=== PATIENT | female | born 1960 | race Caucasian/White ===

== ENCOUNTER → 2016-09-02 | Outpatient (CLI) | payer OTHER ==
--- NOTE | 2016-09-02 12:54 | MM ---
Reason for exam: screening (asymptomatic). Last mammogram was performed 1 year and 5 months ago. History: Patient is postmenopausal. Family history of premenopausal breast cancer in mother at age 40. Took hormonal contraceptives for 10 years. Physical Findings: A clinical breast exam by your physician is recommended on an annual basis and results should be correlated with mammographic findings. MG 3D Screening Mammo W/Cad Bilateral CC and MLO view(s) were taken. Prior study comparison: April 10, 2015, bilateral MG screening mammo w CAD. April 17, 2013, bilateral digital screening mammo w/CAD. The breast tissue is heterogeneously dense. This may lower the sensitivity of mammography. There is no discrete abnormality. ASSESSMENT: Negative, BI-RAD 1 RECOMMENDATION: Routine screening mammogram of both breasts in 1 year.
== END | disposition home or self-care (01) ==
LOC: RADMAMWWP 07:50
PROVIDERS: ATTEND Obstetrics & Gynecology
DX: Z12.31 Encounter for screening mammogram for malignant neoplasm of breast (principal); Z80.3 Family history of malignant neoplasm of breast
CPT/HCPCS: 77063; G0202

== ENCOUNTER → 2018-04-22 | Outpatient (CLI) | payer OTHER ==
--- NOTE | 2018-04-25 10:48 | MM ---
Reason for exam: screening (asymptomatic). Last mammogram was performed 1 year and 8 months ago. History: Patient is postmenopausal. Family history of premenopausal breast cancer in mother at age 40. Took hormonal contraceptives for 10 years. Physical Findings: A clinical breast exam by your physician is recommended on an annual basis and results should be correlated with mammographic findings. MG 3D Screening Mammo W/Cad Bilateral CC and MLO view(s) were taken. Prior study comparison: September 02, 2016, bilateral MG 3d screening mammo w/cad. April 10, 2015, bilateral MG screening mammo w CAD. The breast tissue is heterogeneously dense. This may lower the sensitivity of mammography. There is no discrete abnormality. ASSESSMENT: Negative, BI-RAD 1 RECOMMENDATION: Routine screening mammogram of both breasts in 1 year.
== END | disposition home or self-care (01) ==
LOC: RADMAMWWP 08:57
PROVIDERS: ATTEND Family Medicine
DX: Z12.31 Encounter for screening mammogram for malignant neoplasm of breast (principal)
CPT/HCPCS: 77063; 77067

== ENCOUNTER 2018-06-01 09:09 | Day surgery (SDC) | payer OTHER ==
[2018-05-27 14:16] VITALS: BMI 29.5
--- NOTE | 2018-06-01 09:33 | P.GSHP ---
History of Present Illness H&P Date: 06/01/18 CHIEF COMPLAINT: Colon screen HISTORY OF PRESENT ILLNESS: The patient is a 58-year-old female who presents for colon screen. Lower endoscopy was offered for further evaluation and management. PAST MEDICAL HISTORY: Please see list. PAST SURGICAL HISTORY: Please see list. MEDICATIONS: Please see list. ALLERGIES: Please see list. SOCIAL HISTORY: No illicit drug use FAMILY HISTORY: No reports of Crohn disease or ulcerative colitis. REVIEW OF ORGAN SYSTEMS: CONSTITUTIONAL: No reports of fevers or chills. PHYSICAL EXAM: VITAL SIGNS: Stable GENERAL: Well-developed pleasant in no acute distress. HEENT: No scleral icterus. Extraocular movements grossly intact. Moist buccal mucosa. NECK: Supple without lymphadenopathy. CHEST: Unlabored respirations. Equal bilateral excursions. CARDIOVASCULAR: Regular rate and rhythm. Distal 2+ pulses. ABDOMEN: Soft, nontender, nondistended. MUSCULOSKELETAL: No clubbing, cyanosis, or edema. ASSESSMENT: 1. Colon screen. PLAN: 1. Recommend proceeding with a lower endoscopy Past Medical History Past Medical History: No Reported History Additional Past Medical History / Comment(s): SCREENING History of Any Multi-Drug Resistant Organisms: None Reported Additional Past Surgical History / Comment(s): COLONOSCOPY Past Anesthesia/Blood Transfusion Reactions: No Reported Reaction Additional Past Anesthesia/Blood Transfusion Reaction / Comment(s): NO GENERAL ANESTHESIA Smoking Status: Former smoker - Past Family History Mother Family Medical History: Cancer Brother(s) Family Medical History: Cancer Medications and Allergies Home Medications Medication Instructions Recorded Confirmed Type No Known Home Medications 05/27/18 05/27/18 History Allergies Allergy/AdvReac Type Severity Reaction Status Date / Time No Known Allergies Allergy Verified 05/27/18 14:11
[2018-06-01 09:50] VITALS: RESP 18; TEMP 97.8
[2018-06-01] MEDS ORDERED: LIDOCAINE 1% 20 ML VIAL (10MG/ML) FOR IV START INTRADERMA ONE (09:59)
[2018-06-01] MEDS: LACTATED RINGERS 1,000 ML IV SCH ×2 (09:59→10:30)
[2018-06-01] MEDS ORDERED: PROPOFOL 10 MG/ML 20 ML VIAL IV ONE (10:29)
[2018-06-01] MEDS ORDERED: LIDOCAINE 1% INJ 10MG/ML (20 ML MDV) ONE (10:29)
--- NOTE | 2018-06-01 11:06 | P.PCN ---
Date of Procedure: 06/01/18 Description of Procedure: PREOPERATIVE DIAGNOSIS: Colonoscopy surveillance History of colon polyps POSTOPERATIVE DIAGNOSIS: Colonoscopy surveillance History of colon polyps Tubular adenoma sigmoid colon Distal transverse colon polyp Internal/external hemorrhoids OPERATION: Colonoscopy to the ileocecal valve and appendiceal orifice. Colonoscopy with hot snare polypectomy sigmoid colon Colonoscopy with cold forceps biopsy distal transverse colon SURGEON: Carol Benitez MD. ANESTHESIA: MAC. INDICATIONS: The patient is a 58-year-old female who presents for colonoscopy. Last colonoscopy was 5 years ago and incomplete. She is a personal history of colon polyps. Benefits and risks were described and informed consent was obtained. DESCRIPTION OF PROCEDURE: The patient had undergone Gatorade, MiraLAX and Dulcolax prep. She had been brought into the operating room and laid in the left lateral decubitus position. After adequate intravenous sedation, the rectum was examined with 2% lidocaine jelly. External hemorrhoids were encountered. The rectal tone was within normal limits. No lesions were palpated in the rectal vault. Abdominal pressure was used to advance the scope. An Olympus colonoscope was advanced until the ileocecal valve and appendiceal orifice were clearly viewed. The prep was excellent with clear visualization of the mucosal folds. The scope was removed with visualization of each mucosal fold. No scattered diverticulosis was encountered. Tubular adenoma with snare polypectomy at 20 cm from the anal verge, 8 mm polyp. At mid transverse colon, 70 cm from the anal verge, 4 mm polyp cold forceps biopsy. No evidence of focal colitis was found. Retroflexion of the scope demonstrated grade 2 internal hemorrhoids without active bleeding or inflammation. The colon was desufflated. The patient had tolerated the procedure well. Withdrawal time was over 6 minutes. FINDINGS: Internal hemorrhoids, grade 2 External prolapsed hemorrhoids, grade 2 No arteriovenous malformations. No scattered diverticulosis was encountered. Removal of 2 polyps: - Tubular adenoma with snare polypectomy at 20 cm from the anal verge, 8 mm polyp, sigmoid colon - At mid transverse colon, 70 cm from the anal verge, 4 mm polyp cold forceps biopsy. No focal colitis. RECOMMENDATIONS: Colonoscopy in one year, 2019, for high risk polyps Plan - Discharge Summary New Discharge Prescriptions: No Action No Known Home Medications Discharge Medication List No Known Home Medications 05/27/18 [History]
[2018-06-01 11:32] VITALS: BP 143/76; PULSE 66
== END 2018-06-01 11:33 | disposition home or self-care (01) ==
LOC: ORWHC2ENDO 09:09
PROVIDERS: ATTEND Surgery Plastic and Reconstructive Surgery
DX: Z12.11 Encounter for screening for malignant neoplasm of colon (principal); D12.5 Benign neoplasm of sigmoid colon; D12.3 Benign neoplasm of transverse colon; K64.1 Second degree hemorrhoids; K64.8 Other hemorrhoids; Z86.010 Personal history of colon polyps; Z87.891 Personal history of nicotine dependence
CPT/HCPCS: 88305; 45380; 45385; J2001; J2704

== ENCOUNTER → 2019-08-07 | Outpatient (CLI) | payer OTHER ==
--- NOTE | 2019-08-07 14:03 | MM ---
Reason for exam: screening (asymptomatic). Last mammogram was performed 1 year and 3 months ago. History: Patient is postmenopausal. Family history of premenopausal breast cancer in mother at age 40. Took hormonal contraceptives for 10 years. Physical Findings: A clinical breast exam by your physician is recommended on an annual basis and results should be correlated with mammographic findings. MG 3D Screening Mammo W/Cad Bilateral CC and MLO view(s) were taken. Prior study comparison: April 22, 2018, bilateral MG 3d screening mammo w/cad. September 02, 2016, bilateral MG 3d screening mammo w/cad. The breast tissue is heterogeneously dense. This may lower the sensitivity of mammography. No suspicious abnormality. No significant changes when compared with prior studies. ASSESSMENT: Negative, BI-RAD 1 RECOMMENDATION: Routine screening mammogram of both breasts in 1 year.
== END | disposition home or self-care (01) ==
LOC: RADMAMWWP 09:52
PROVIDERS: ATTEND Obstetrics & Gynecology
DX: Z12.31 Encounter for screening mammogram for malignant neoplasm of breast (principal); Z80.3 Family history of malignant neoplasm of breast
CPT/HCPCS: 77063; 77067

== ENCOUNTER 2019-08-10 07:11 | Day surgery (SDC) | payer OTHER ==
[2019-08-08 13:43] VITALS: BMI 29.6
[~2019-08-10 07:11] MED LIST: LACTATED RINGERS 1,000 ML IV SCH; LIDOCAINE 1% 20 ML VIAL (10MG/ML) FOR IV START INTRADERMA PRN
[2019-08-10 07:28] VITALS: TEMP 97.4
--- NOTE | 2019-08-10 07:58 | P.GSHP ---
History of Present Illness H&P Date: 08/10/19 CHIEF COMPLAINT: Colon screen HISTORY OF PRESENT ILLNESS: The patient is a 59-year-old female who presents for colon screen. Lower endoscopy was offered for further evaluation and management. PAST MEDICAL HISTORY: Please see list. PAST SURGICAL HISTORY: Please see list. MEDICATIONS: Please see list. ALLERGIES: Please see list. SOCIAL HISTORY: No illicit drug use FAMILY HISTORY: No reports of Crohn disease or ulcerative colitis. REVIEW OF ORGAN SYSTEMS: CONSTITUTIONAL: No reports of fevers or chills. PHYSICAL EXAM: VITAL SIGNS: Stable GENERAL: Well-developed pleasant in no acute distress. HEENT: No scleral icterus. Extraocular movements grossly intact. Moist buccal mucosa. NECK: Supple without lymphadenopathy. CHEST: Unlabored respirations. Equal bilateral excursions. CARDIOVASCULAR: Regular rate and rhythm. Distal 2+ pulses. ABDOMEN: Soft, nontender, nondistended. MUSCULOSKELETAL: No clubbing, cyanosis, or edema. ASSESSMENT: 1. Colon screen. PLAN: 1. Recommend proceeding with a lower endoscopy Past Medical History Past Medical History: Skin Disorder Additional Past Medical History / Comment(s): rash on left leg, History of Any Multi-Drug Resistant Organisms: None Reported Additional Past Surgical History / Comment(s): colonoscopy Past Anesthesia/Blood Transfusion Reactions: Motion Sickness Smoking Status: Former smoker - Past Family History Mother Family Medical History: Cancer Medications and Allergies Home Medications Medication Instructions Recorded Confirmed Type Calcium Carbonate [Calcium] 600 mg PO BID 08/08/19 08/10/19 History Vitamin A D K 1 tab PO DAILY 08/08/19 08/10/19 History Allergies Allergy/AdvReac Type Severity Reaction Status Date / Time No Known Allergies Allergy Verified 08/08/19 13:36 Surgical - Exam Vital Signs Temp Pulse Resp BP Pulse Ox 97.4 F L 72 16 158/77 99 08/10/19 07:26 08/10/19 07:26 08/10/19 07:26 08/10/19 07:26 08/10/19 07:26
[2019-08-10] MEDS ORDERED: LIDOCAINE 1% INJ 10MG/ML (20 ML MDV) ONE (08:06)
[2019-08-10] MEDS ORDERED: PROPOFOL 10 MG/ML 20 ML VIAL IV ONE (08:06)
--- NOTE | 2019-08-10 08:32 | P.PCN ---
Date of Procedure: 08/10/19 Description of Procedure: PREOPERATIVE DIAGNOSIS: Colonoscopy surveillance History of colon polyps POSTOPERATIVE DIAGNOSIS: Colonoscopy surveillance History of colon polyps Tubular adenoma sigmoid colon Internal/external hemorrhoids OPERATION: Colonoscopy to the ileocecal valve and appendiceal orifice. Colonoscopy with cold forceps biopsy SURGEON: Carol Benitez MD. ANESTHESIA: MAC. INDICATIONS: The patient is a 59-year-old female who presents for colonoscopy. She is a personal history of colon polyps with last colonoscopy 1 year ago. Benefits and risks were described and informed consent was obtained. DESCRIPTION OF PROCEDURE: The patient had undergone Suprep. She had been brought into the operating room and laid in the left lateral decubitus position. After adequate intravenous sedation, the rectum was examined with 2% lidocaine jelly. External hemorrhoids were encountered. The rectal tone was within normal limits. No lesions were palpated in the rectal vault. Abdominal pressure was used to advance the scope. An Olympus colonoscope was advanced until the ileocecal valve and appendiceal orifice were clearly viewed. The prep was excellent with clear visualization of the mucosal folds. The scope was removed with visualization of each mucosal fold. No scattered diverticulosis was encountered. Multiple polyps were removed via cold forceps biopsy. No evidence of focal colitis was found. Retroflexion of the scope demonstrated grade 2 internal hemorrhoids without active bleeding or inflammation. The colon was desufflated. The patient had tolerated the procedure well. Withdrawal time was over 6 minutes. FINDINGS: Aronchick preparation quality scale 1 (1-5) Internal hemorrhoids, grade 2 External prolapsed hemorrhoids, grade 2 No arteriovenous malformations. No scattered diverticulosis was encountered. Removal of 4 polyps: - Cold forceps biopsy at 20 cm 3, 3-4 mm polyps, sigmoid colon - Cold forceps biopsy at cecum, 3 mm polyp cold forceps biopsy. No focal colitis. RECOMMENDATIONS: Colonoscopy in 3 years, 2022 Plan - Discharge Summary New Discharge Prescriptions: No Action Calcium Carbonate [Calcium] 600 mg PO BID Vitamin A D K 1 tab PO DAILY Discharge Medication List Calcium Carbonate [Calcium] 600 mg PO BID 08/08/19 [History] Vitamin A D K 1 tab PO DAILY 08/08/19 [History] Follow up Appointment(s)/Referral(s): Carol Benitez MD [STAFF PHYSICIAN] - As Needed Patient Instructions/Handouts: Colorectal Polyps (DC) Activity/Diet/Wound Care/Special Instructions: Reproductive colonoscopy 3 years, 2022 Discharge Disposition: HOME SELF-CARE
[2019-08-10 08:47] VITALS: BP 146/89; PULSE 60; RESP 16
== END 2019-08-10 09:09 | disposition home or self-care (01) ==
LOC: ORWHC2ENDO 07:11
PROVIDERS: ATTEND Surgery Plastic and Reconstructive Surgery
DX: Z12.11 Encounter for screening for malignant neoplasm of colon (principal); K63.5 Polyp of colon; K64.4 Residual hemorrhoidal skin tags; K64.1 Second degree hemorrhoids; Z86.010 Personal history of colon polyps; Z87.891 Personal history of nicotine dependence; Z87.2 Personal history of diseases of the skin and subcutaneous tissue; Z80.9 Family history of malignant neoplasm, unspecified
CPT/HCPCS: 88305; 45380; J2001; J2704

== ENCOUNTER → 2021-06-17 | Outpatient (CLI) | payer OTHER ==
--- NOTE | 2021-06-18 11:19 | MM ---
Reason for exam: screening (asymptomatic). Last mammogram was performed 1 year and 10 months ago. History: Patient is postmenopausal. Family history of premenopausal breast cancer in mother at age 40. Took hormonal contraceptives for 10 years. Physical Findings: A clinical breast exam by your physician is recommended on an annual basis and results should be correlated with mammographic findings. MG 3D Screening Mammo W/Cad Bilateral CC and MLO view(s) were taken. Prior study comparison: August 07, 2019, bilateral MG 3d screening mammo w/cad. April 22, 2018, bilateral MG 3d screening mammo w/cad. The breast tissue is heterogeneously dense. This may lower the sensitivity of mammography. No significant changes when compared with prior studies. ASSESSMENT: Benign, BI-RAD 2 RECOMMENDATION: Routine screening mammogram of both breasts in 1 year.
== END | disposition home or self-care (01) ==
LOC: RADMAMWWP 07:09
PROVIDERS: ATTEND Obstetrics & Gynecology
DX: Z12.31 Encounter for screening mammogram for malignant neoplasm of breast (principal); Z80.3 Family history of malignant neoplasm of breast; Z78.0 Asymptomatic menopausal state
CPT/HCPCS: 77063; 77067

== ENCOUNTER → 2022-11-17 | Outpatient (CLI) | payer OTHER ==
--- NOTE | 2022-11-18 18:36 | MM ---
Reason for Exam: Screening (asymptomatic). Last mammogram was performed 1 year(s) and 5 month(s) ago. Patient History: Menarche at age 10. First Full-Term at age 28. Late child-bearing (after 28). Postmenopausal. Hormonal Contraceptives for 10 years until age 28. Mother had breast cancer, age 40. Risk Values: Adriane 5 year model risk: 3.3%. NCI Lifetime model risk: 12.7%. Prior Study Comparison: 04/22/2018 Bilateral Screening Mammogram, [facility]. 08/07/2019 Bilateral Screening Mammogram, [facility]. 06/17/2021 Bilateral Screening Mammogram, [facility]. Tissue Density: There are scattered fibroglandular densities. Findings: Analyzed By CAD. Pattern appears stable. No significant interval change is evident. No suspicious groups of microcalcifications, spiculated or lobular masses, architectural distortion or other secondary signs of malignancy are mammographically apparent. Overall Assessment: Benign, BI-RAD 2 Management: Screening Mammogram of both breasts in 1 year. A negative mammogram report should not preclude additional follow up of suspicious palpable abnormalities. Patient should continue monthly self breast exam. A clinical breast exam by your physician is recommended on an annual basis and results should be correlated with mammographic findings. Electronically signed and approved by: Irwin Sun D.O. Radiologis
== END | disposition home or self-care (01) ==
LOC: RADMAMWWP 11:24
PROVIDERS: ATTEND Obstetrics & Gynecology
DX: Z12.31 Encounter for screening mammogram for malignant neoplasm of breast (principal); Z78.0 Asymptomatic menopausal state; Z80.3 Family history of malignant neoplasm of breast
CPT/HCPCS: 77063; 77067

== ENCOUNTER → 2023-11-03 | Outpatient (CLI) | payer MEDICARE ==
[2023-11-03 14:41] LABS: HCT 45.9 % (37.2-46.3); HGB 14.9 g/dL (12.0-15.0); MCHC 32.5 g/dL (32.0-37.0); MCV 95.6 FL (80.0-97.0); Mean Platelet Volume 12.4 FL (9.5-12.2); NRBC Per 100 WBC 0 X 10*3/uL (0.00-0.01); Platelet Count 201 X 10*3/uL (140-440); RDW 14.1 % (11.5-14.5); WBC 4.79 X 10*3/uL (4.50-10.00)
[2023-11-03 15:36] LABS: Blood Urea Nitrogen 15.2 mg/dL (9.0-27.0); Carbon Dioxide 26.8 mmol/L (21.6-31.8); Chloride 105 mmol/L (96-109); Potassium 4.5 mmol/L (3.5-5.5); Sodium 142 mmol/L (135-145)
== END | disposition home or self-care (01) ==
LOC: LABWHC1 09:16
PROVIDERS: ATTEND Internal Medicine
DX: Z01.812 Encounter for preprocedural laboratory examination (principal); R06.02 Shortness of breath
CPT/HCPCS: 36415; 80051; 82565; 84520; 85027

== ENCOUNTER 2023-11-10 08:48 | Day surgery (SDC) | payer MEDICARE ==
[2023-11-09 08:48] VITALS: BMI 30.4
[~2023-11-10 08:48] MED LIST changes: +ALPRAZolam 0.25 MG TAB PO PRN; -LACTATED RINGERS 1,000 ML IV SCH; -LIDOCAINE 1% 20 ML VIAL (10MG/ML) FOR IV START INTRADERMA PRN; +NITROGLYCERIN SL TABS 0.4 MG TAB SUBLINGUAL PRN
[2023-11-10] MEDS: ASPIRIN 325 MG TAB PO STA (09:00)
[2023-11-10] MEDS: SODIUM CHLORIDE 0.9% 1,000 ML in EMPTY BAG 1 BAG IV SCH (09:00)
[2023-11-10] MEDS: SODIUM CHLORIDE 0.9% 1,000 ML IV ONE (09:06)
[2023-11-10] MEDS: ALPRAZolam 0.5 MG TAB PO PRN (09:24)
[2023-11-10 09:50] VITALS: RESP 18; TEMP 97.6
[2023-11-10] MEDS ORDERED: fentaNYL (PF) 50 MCG/ML 2 ML AMP ONE (09:55)
[2023-11-10] MEDS ORDERED: LIDOCAINE 1% INJ 10MG/ML (20 ML MDV) ONE (09:55)
[2023-11-10] MEDS ORDERED: HEPARIN SODIUM 1,000 UN/ML (10ML VL) ONE (09:55)
[2023-11-10] MEDS ORDERED: VERAPAMIL 2.5 MG/ML 2 ML AMP ONE (09:55)
[2023-11-10] MEDS: LIDOCAINE 1% INJ 10MG/ML (30 ML VIAL-PF) SQ ONE (10:30)
[2023-11-10] MEDS: VERAPAMIL SYRINGE (5 MG/10 ML) INTRAARTER ONE (10:30)
[2023-11-10] MEDS: fentaNYL (PF) 50 MCG/1 ML VIAL IVP ONE (10:30)
[2023-11-10] MEDS: MIDAZOLAM 2 MG/2 ML VIAL IVP ONE (10:30)
[2023-11-10] MEDS: HEPARIN SODIUM 1,000 UN/ML (10ML VL) IVP ONE (10:33)
[2023-11-10] MEDS: IOPAMIDOL-370 100ML BTL INTRATHECA ONE (10:44)
--- NOTE | 2023-11-10 13:15 | P.CARDCATH ---
Description of Procedure: PROCEDURES PERFORMED: Left heart catheterization, bilateral coronary angiography, ultrasound guided arterial access INDICATION: abnormal stress test CONSENT:I have discussed the risks, benefits and alternative therapies for the above-mentioned procedure and for both sedation/analgesia as well as necessary blood product administration, if indicated, as they pertain to this patient. The patient has indicated understanding and acceptance of the risks and procedures discussed. PROCEDURE: After the risks, benefits and alternatives of the above mentioned procedure explained in detail with the patient, informed consent was obtained. Patient was taken to the catheterization lab and prepped and draped in usual fashion. Ultrasound guidance was used to assess for arterial access. 1% lidocaine was used to anesthetize the right radial artery. A 6-Guamanian sheath was placed in the right radial artery using modified Seldinger technique and ultrasound guidance. Left coronary angiography was performed with a 5-Guamanian JL 3.5 catheter and right coronary angiography was performed with a 5-Guamanian FR5 catheter in various views. A 5-Guamanian FR5 catheter was inserted into the left ventricle and pressure measurements were obtained. The right radial sheath was removed and a TR band was placed with hemostasis achieved. The patient to lerated the procedure well. Patient was transported back to the post catheterization holding area in stable condition. Conscious Sedation: Patient was monitored under the direct supervision of myself for conscious sedation using Versed and fentanyl for a total duration of 12 minutes HEMODYNAMICS: aorta: 138/71 LV: 134/7, LVDP 13 SELECTIVE CORONARY ARTERIOGRAPHY: LEFT MAIN: The left main is a large caliber vessel which bifurcates into the LAD and circumflex. There is no significant stenosis. LEFT ANTERIOR DESCENDING CORONARY ARTERY: LAD is a large caliber vessel which wraps around to the apex. There is no significant stenosis. LEFT CIRCUMFLEX CORONARY ARTERY: Left circumflex is a moderate caliber vessel without significant stenosis. RIGHT CORONARY ARTERY: The right coronary artery is a large caliber vessel which gives off a PDA and PLV branch and is the dominant vessel. There are mild luminal irregularities of the RCA FINAL IMPRESSION: 1. Relatively normal coronary arteries other than mild luminal irregularities of the RCA 2. Normal left sided filling pressures PLAN: 1. Aggressive risk factor modification per most recent ACC/AHA guidelines. 2. Follow-up in the office in 1-2 weeks.
[2023-11-10 13:21] VITALS: PULSE 62
[2023-11-10 15:12] VITALS: BP 136/59
== END 2023-11-10 14:40 | disposition home or self-care (01) ==
LOC: CATHCVL 08:48
PROVIDERS: ATTEND Internal Medicine
DX: I48.0 Paroxysmal atrial fibrillation (principal); I34.0 Nonrheumatic mitral (valve) insufficiency; I50.31 Acute diastolic (congestive) heart failure; Z79.01 Long term (current) use of anticoagulants; Z79.899 Other long term (current) drug therapy
CPT/HCPCS: 93458; 76937; 99152; C1769; C1894; J2250; J2001; J1644; Q9967; J3010

== ENCOUNTER → 2023-12-23 | Outpatient (CLI) | payer MEDICARE ==
--- NOTE | 2023-12-28 12:01 | MM ---
Reason for Exam: Screening (asymptomatic). Last mammogram was performed 1 year(s) and 1 month(s) ago. Patient History: Menarche at age 10. First Full-Term at age 28. Late child-bearing (after 30). Postmenopausal. Hormonal Contraceptives for 10 years until age 28. Mother had breast cancer, age 40. Risk Values: Adriane 5 year model risk: 3.3%. NCI Lifetime model risk: 12.3%. Prior Study Comparison: 08/07/2019 Bilateral Screening Mammogram, [facility]. 06/17/2021 Bilateral Screening Mammogram, [facility]. 11/17/2022 Bilateral MG 3D screening mammo w/cad, [facility]. Tissue Density: The breasts are heterogeneously dense, which may obscure small masses. Findings: Analyzed By CAD. Right breast: There is no suspicious group of microcalcifications or new suspicious mass. Left breast: There is no suspicious group of microcalcifications or new suspicious mass. Overall Assessment: Negative, BI-RAD 1 Management: Screening Mammogram of both breasts in [address] [facility] will attempt to contact patient to return for supplemental views and ultrasound if indicated. Patient should continue monthly self-breast exams. A clinical breast exam by your physician is recommended on an annual basis. This exam should not preclude additional follow-up of suspicious palpable abnormalities. Note on Adriane scores and lifetime risk: 1. A Adriane score greater than 3% is considered moderate risk. If this is the case, consider specialist referral to assess eligibility for a risk reducing agent. 2. If overall lifetime risk for the development of breast cancer is 20% or higher, the patient may qualify for future screening with alternating mammogram and breast MRI. Electronically signed and approved by: Brian Barry DO
== END | disposition home or self-care (01) ==
LOC: RADMAMWWP 12:37
PROVIDERS: ATTEND Family Medicine
DX: Z12.31 Encounter for screening mammogram for malignant neoplasm of breast (principal); Z78.0 Asymptomatic menopausal state; Z80.3 Family history of malignant neoplasm of breast
CPT/HCPCS: 77063; 77067

== ENCOUNTER 2024-06-15 11:42 | Day surgery (SDC) | payer MEDICARE ==
--- NOTE | 2024-06-15 08:42 | P.GSHP ---
History of Present Illness H&P Date: 06/15/24 CHIEF COMPLAINT: Colon screen HISTORY OF PRESENT ILLNESS: The patient is a 64-year-old female who presents for colon screen. Lower endoscopy was offered for further evaluation and management. PAST MEDICAL HISTORY: Please see list. PAST SURGICAL HISTORY: Please see list. MEDICATIONS: Please see list. ALLERGIES: Please see list. SOCIAL HISTORY: No illicit drug use FAMILY HISTORY: No reports of Crohn disease or ulcerative colitis. REVIEW OF ORGAN SYSTEMS: CONSTITUTIONAL: No reports of fevers or chills. PHYSICAL EXAM: VITAL SIGNS: Stable GENERAL: Well-developed pleasant in no acute distress. HEENT: No scleral icterus. Extraocular movements grossly intact. Moist buccal mucosa. NECK: Supple without lymphadenopathy. CHEST: Unlabored respirations. Equal bilateral excursions. CARDIOVASCULAR: Regular rate and rhythm. Distal 2+ pulses. ABDOMEN: Soft, nontender, nondistended. MUSCULOSKELETAL: No clubbing, cyanosis, or edema. ASSESSMENT: 1. Colon screen. PLAN: 1. Recommend proceeding with a lower endoscopy Past Medical History Past Medical History: Atrial Fibrillation, Hyperlipidemia, Osteoarthritis (OA) History of Any Multi-Drug Resistant Organisms: None Reported Additional Past Surgical History / Comment(s): Colonoscopy Past Anesthesia/Blood Transfusion Reactions: No Reported Reaction Additional Past Anesthesia/Blood Transfusion Reaction / Comment(s): No hx of blood transfusion to date. Smoking Status: Former smoker - Past Family History Father Family Medical History: No Reported History Medications and Allergies Home Medications Medication Instructions Recorded Confirmed Type Apixaban [Eliquis] 5 mg PO BID 11/09/23 06/12/24 History Allergies Allergy/AdvReac Type Severity Reaction Status Date / Time No Known Allergies Allergy Verified 06/12/24 10:06
[2024-06-15 12:22] VITALS: RESP 18; TEMP 98.1
[2024-06-15] MEDS: IV FLUID CONTINUATION 1,000 ML IV ONE (12:30)
[2024-06-15] MEDS: LACTATED RINGERS 1,000 ML IV SCH (12:31)
[2024-06-15] MEDS ORDERED: PROPOFOL 10 MG/ML 20 ML VIAL IV ONE (12:42)
--- NOTE | 2024-06-15 13:14 | P.PCN ---
Date of Procedure: 06/15/24 Description of Procedure: PREOPERATIVE DIAGNOSIS: Colonoscopy screening. POSTOPERATIVE DIAGNOSIS: Colonoscopy screening. Hyperplastic rectal polyps OPERATION: Colonoscopy to the cecum, ileocecal valve and appendiceal orifice. SURGEON: Carol Benitez MD. ANESTHESIA: MAC. INDICATIONS: The patient is a 64-year-old female who presents for colonoscopy screening. Last colonoscopy 5 years ago. Benefits and risks were described and informed consent was obtained. DESCRIPTION OF PROCEDURE: The patient had undergone Sutab prep. The patient had been brought into the operating room and laid in the left lateral decubitus position. After adequate intravenous sedation, the rectum was examined with 2% lidocaine jelly. No external hemorrhoids were encountered. The rectal tone was within normal limits. No lesions were palpated in the rectal vault. An Olympus colonoscope was advanced until the cecum, ileocecal valve and appendiceal orifice were clearly viewed. The prep was excellent. Scattered diverticulosis was encountered. Hyperplastic benign rectal polyps were identified. No evidence of focal colitis was found. Retroflexion of the scope demonstrated grade 1 internal hemorrhoids without active bleeding or inflammation. The colon was desufflated. The patient had tolerated the procedure well. Withdrawal time was over 6 minutes. FINDINGS: Aronchick preparation quality scale (1-5) Internal hemorrhoids, grade 1 No external prolapsed hemorrhoids. No arteriovenous malformations. Hyperplastic rectal polyps, 10 cm from the anal verge. No focal colitis. RECOMMENDATIONS: Lower endoscopy in 3 years2026 Plan - Discharge Summary Discharge Rx Participant: No New Discharge Prescriptions: Continue Apixaban [Eliquis] 5 mg PO BID Discharge Medication List Apixaban [Eliquis] 5 mg PO BID 11/09/23 [History] Follow up Appointment(s)/Referral(s): Carol Benitez MD [STAFF PHYSICIAN] - As Needed Patient Instructions/Handouts: Moderate Sedation (DC) Activity/Diet/Wound Care/Special Instructions: Repeat colonoscopy 3 years, 2026 Discharge Disposition: HOME SELF-CARE
[2024-06-15 13:22] VITALS: BP 144/77; PULSE 62
== END 2024-06-15 13:38 | disposition home or self-care (01) ==
LOC: ORWHC2ENDO 11:42
PROVIDERS: ATTEND Surgery Plastic and Reconstructive Surgery
DX: Z12.11 Encounter for screening for malignant neoplasm of colon (principal); D12.8 Benign neoplasm of rectum; K57.30 Diverticulosis of large intestine without perforation or abscess without bleeding; K64.0 First degree hemorrhoids; I48.91 Unspecified atrial fibrillation; E78.5 Hyperlipidemia, unspecified; Z79.01 Long term (current) use of anticoagulants; Z86.0100 Personal history of colon polyps, unspecified
CPT/HCPCS: J2704; G0121; 45378

== ENCOUNTER 2024-10-21 17:09 | Inpatient (IN) | payer MEDICARE ==
--- NOTE | 2024-10-21 17:25 | ED ---
General Adult HPI - General Chief complaint: Weakness Stated complaint: irreg heart rate,weak,SOB Time Seen by Provider: 10/21/24 17:22 Source: patient, RN notes reviewed, old records reviewed Mode of arrival: ambulatory Limitations: no limitations - History of Present Illness Initial comments: This is a 64-year-old female with a history of atrial fibrillation on Eliquis presenting to the emergency department with complaints of exam and abnormal heart rhythm. Patient states that over the past few days she states that she feels like her heart has been irregular rhythm similar as when she has had A-fib in the past. States that she feels mildly short of breath with activity of the past few days as well. She denies chest pain, difficulty in breathing at rest, headaches, visual disturbances. Patient states that she was on amiodarone for over a year ago however she was titrated off of this medication by her insurance healthcare consultant. - Related Data Home Medications Medication Instructions Recorded Confirmed Apixaban [Eliquis] 5 mg PO BID 11/09/23 10/21/24 Allergies Allergy/AdvReac Type Severity Reaction Status Date / Time No Known Allergies Allergy Verified 10/21/24 18:29 Review of Systems ROS Statement: Those systems with pertinent positive or pertinent negative responses have been documented in the HPI. ROS Other: All systems not noted in ROS Statement are negative. Past Medical History Past Medical History: Atrial Fibrillation, Hyperlipidemia, Osteoarthritis (OA) History of Any Multi-Drug Resistant Organisms: None Reported Additional Past Surgical History / Comment(s): Colonoscopy Past Anesthesia/Blood Transfusion Reactions: No Reported Reaction Additional Past Anesthesia/Blood Transfusion Reaction / Comment(s): No hx of blood transfusion to date. Past Psychological History: No Psychological Hx Reported Smoking Status: Former smoker - Past Family History Father Family Medical History: No Reported History General Exam Limitations: no limitations General appearance: alert, in no apparent distress ENT exam: Present: normal exam, mucous membranes moist Neck exam: Present: normal inspection. Absent: tenderness, meningismus, lymphadenopathy Respiratory exam: Present: normal lung sounds bilaterally. Absent: respiratory distress, wheezes, rales, rhonchi, stridor Cardiovascular Exam: Present: tachycardia, irregular rhythm, normal heart sounds. Absent: regular rate, normal rhythm, systolic murmur, diastolic murmur, rubs, gallop, clicks GI/Abdominal exam: Present: soft, normal bowel sounds. Absent: distended, tenderness, guarding, rebound, rigid Extremities exam: Present: normal inspection, full ROM, normal capillary refill. Absent: tenderness, pedal edema, joint swelling, calf tenderness Course Vital Signs 10/21/24 10/21/24 17:12 17:59 Temperature 97.6 F Pulse Rate 68 177 H Respiratory 18 18 Rate Blood Pressure 167/96 105/76 O2 Sat by Pulse 100 98 Oximetry Medical Decision Making - Medical Decision Making Was pt. sent in by a medical professional or institution (, PA, FABRIC INSPECTOR, urgent care, hospital, or senior living...) When possible be specific @ -No Did you speak to anyone other than the patient for history (EMS, parent, family, police, friend...)? What history was obtained from this source @ -No Did you review nursing and triage notes (agree or disagree)? Why? @ -I reviewed and agree with nursing and triage notes Were old charts reviewed (outside hosp., previous admission, EMS record, old EKG, old radiological studies, urgent care reports/EKG's, senior living records)? Report findings @ -Patient had a cardiac catheterization completed on 11/10/2023 where it was noted that patient had relatively normal coronary arteries other than mild luminal irregularities of the RCA with normal left-sided filling pressure Differential Diagnosis (chest pain, altered mental status, abdominal pain women, abdominal pain men, vaginal bleeding, weakness, fever, dyspnea, syncope, headache, dizziness, GI bleed, back pain, seizure, CVA, palpatations, mental health, musculoskeletal)? @ -Differential Palpitations Ventricular arrhythmias, atrial arrhythmias, myocardial infarction, anemia, thyrotoxicosis, electrolyte imbalance, hypokalemia, pulmonary embolism, pul monary disease, drugs, alcohol, anxiety, stress.... This is not meant to be an all-inclusive list. EKG interpreted by me (3pts min.). @ -Completed at 1758 atrial fibrillation with rapid ventricular response, ventricular rate 160, QRS 104, QTc 361. X-rays interpreted by me (1pt min.). @ -Chest x-ray completed with no acute cardiopulmonary process CT interpreted by me (1pt min.). @ -None done U/S interpreted by me (1pt. min.). @ -None done What testing was considered but not performed or refused? (CT, X-rays, U/S, labs)? Why? @ -None What meds were considered but not given or refused? Why? @ -None Did you discuss the management of the patient with other professionals (pr ofessionals i.e. , PA, FABRIC INSPECTOR, lab, RT, psych nurse, social media executive, painting technician, teacher, loan servicing officer, case maker)? Give summary @ -I spoke with Dr. Loredo with [facility] in regard to the patient's case who is agreed to admit the patient with cardiology on consult. Was smoking cessation discussed for >3mins.? @ -No Was critical care preformed (if so, how long)? @ -Critical care time is performed for over 35 minutes while patient is started on Cardizem drip. Were there social determinants of health that impacted care today? How? (Homelessness, low income, unemployed, alcoholism, drug addiction, transportation, low edu. Level, literacy, decrease access to med. care, group home, rehab)? @ -No Was there de-escalation of care discussed even if they declined (Discuss DNR or withdrawal of care, Hospice)? DNR status @ -No What co-morbidities impacted this encounter? (DM, HTN, Smoking, COPD, CAD, Cancer, CVA, ARF, Chemo, Hep., AIDS, mental health diagnosis, sleep apnea, morbid obesity)? @ -None Was patient admitted / discharged? Hospital course, mention meds given and route, prescriptions, significant lab abnormalities, going to OR and other pertinent info. @ -Admitted. 64-year-old female presents emergency department with complaints of abnormal heart rhythm. Patient's initial vitals on arrival are stable however when EKG is completed patient is noted to be in atrial fibrillation with rapid ventricular response with a heart rate of 177 and blood pressure 105/76. Patient is asymptomatic. At this time order is placed for a bolus of Cardizem and she will be started on a titratable drip to control rate. Patient is on Eliquis 5 mg 2 times a day therefore anticoagulation has been initiated. Chest x-ray is unremarkable. Laboratory test including CBC, CMP, coagulation unremarkable. Patient has a indeterminate troponin of 0.015, BNP of 5060. Patient will be admitted to internal medicine with cardiology on consult. Cardizem drip continued. case discussed with Dr. Haynes Undiagnosed new problem with uncertain prognosis? @ -No Drug Therapy requiring intensive monitoring for toxicity (Heparin, Nitro, Insulin, Cardizem)? @ -Critical care time is performed for over 35 minutes while patient is started on Cardizem drip. Were any procedures done? @ -No Diagnosis/symptom? @ -afib with RVR Acute, or Chronic, or Acute on Chronic? @ -acute Uncomplicated (without systemic symptoms) or Complicated (systemic symptoms)? @ -complicated Side effects of treatment? @ -No Exacerbation, Progression, or Severe Exacerbation? @ -No Poses a threat to life or bodily function? How? (Chest pain, [place], [place], pneumonia, PE, COPD, DKA, ARF, appy, cholecystitis, CVA, Diverticulitis, Homicidal, Suicidal, threat to staff... and all critical care pts) @ -yes, potential for fatal arrythmia and potential of cardiac arrest and . - Lab Data Result diagrams: 10/21/24 17:47 10/21/24 17:47 Lab Results 10/21/24 10/21/24 10/21/24 Range/Units 17:47 17:47 17:47 WBC 7.01 (4.50-10.00) 10*3/uL RBC 4.76 (4.10-5.20) 10*6/uL Hgb 15.5 H (12.0-15.0) g/dL Hct 45.7 (37.2-46.3) % MCV 96.0 (80.0-97.0) fL MCH 32.6 H (27.0-32.0) pg MCHC 33.9 (32.0-37.0) g/dL Plt Count 215 (140-440) 10*3/uL MPV 12.3 H (9.5-12.2) fL Immature Gran % (Auto) 0.3 % Neutrophils % 59.8 % Lymphocytes % 28.8 % Monocytes % 8.8 % Eosinophils % 1.0 % Basophils % 1.3 % Immature Gran # 0.02 (0.00-0.04) 10*3/uL Neutrophils # 4.19 (1.80-7.70) 10*3/uL Lymphocytes # 2.02 (0.90-5.00) 10*3/uL Monocytes # 0.62 (0.20-1.00) 10*3/uL Eosinophils # 0.07 (0.04-0.35) 10*3/uL Basophils # 0.09 (0.00-0.10) 10*3/uL PT 11.9 (10.0-12.5) sec INR 1.1 (<1.2) APTT 24.8 (22.0-30.0) sec Sodium 142 (137-145) mmol/L Potassium 4.0 (3.5-5.1) mmol/L Chloride 109 H (98-107) mmol/L Carbon Dioxide 19 L (22-30) mmol/L Anion Gap 14 mmol/L BUN 17 (7-17) mg/dL Creatinine 0.85 (0.52-1.04) mg/dL Est GFR (CKD-EPI)AfAm 83 (>60 ml/min/1.73 sqM) Est GFR (CKD-EPI)NonAf 72 (>60 ml/min/1.73 sqM) Glucose 107 H (74-99) mg/dL Calcium 9.8 (8.4-10.2) mg/dL Magnesium 2.1 (1.6-2.3) mg/dL Total Bilirubin 1.3 (0.2-1.3) mg/dL AST 70 H (14-36) U/L ALT 87 H (4-34) U/L Alkaline Phosphatase 96 (38-126) U/L Troponin I (0.000-0.034) ng/mL NT-Pro-B Natriuret Pep pg/mL Total Protein 7.5 (6.3-8.2) g/dL Albumin 4.6 (3.5-5.0) g/dL TSH 3.610 (0.465-4.680) mIU/L 10/21/24 10/21/24 Range/Units 17:47 18:22 WBC (4.50-10.00) 10*3/uL RBC (4.10-5.20) 10*6/uL Hgb (12.0-15.0) g/dL Hct (37.2-46.3) % MCV (80.0-97.0) fL MCH (27.0-32.0) pg MCHC (32.0-37.0) g/dL Plt Count (140-440) 10*3/uL MPV (9.5-12.2) fL Immature Gran % (Auto) % Neutrophils % % Lymphocytes % % Monocytes % % Eosinophils % % Basophils % % Immature Gran # (0.00-0.04) 10*3/uL Neutrophils # (1.80-7.70) 10*3/uL Lymphocytes # (0.90-5.00) 10*3/uL Monocytes # (0.20-1.00) 10*3/uL Eosinophils # (0.04-0.35) 10*3/uL Basophils # (0.00-0.10) 10*3/uL PT (10.0-12.5) sec INR (<1.2) APTT (22.0-30.0) sec Sodium (137-145) mmol/L Potassium (3.5-5.1) mmol/L Chloride (98-107) mmol/L Carbon Dioxide (22-30) mmol/L Anion Gap mmol/L BUN (7-17) mg/dL Creatinine (0.52-1.04) mg/dL Est GFR (CKD-EPI)AfAm (>60 ml/min/1.73 sqM) Est GFR (CKD-EPI)NonAf (>60 ml/min/1.73 sqM) Glucose (74-99) mg/dL Calcium (8.4-10.2) mg/dL Magnesium (1.6-2.3) mg/dL Total Bilirubin (0.2-1.3) mg/dL AST (14-36) U/L ALT (4-34) U/L Alkaline Phosphatase (38-126) U/L Troponin I 0.015 (0.000-0.034) ng/mL NT-Pro-B Natriuret Pep 5060 pg/mL Total Protein (6.3-8.2) g/dL Albumin (3.5-5.0) g/dL TSH (0.465-4.680) mIU/L Disposition Clinical Impression: Atrial fibrillation with rapid ventricular response Disposition: ADMITTED IP TO THIS [facility] Condition: Serious Decision to Admit Reason: Admit from EC Decision Date: 10/21/24 Decision Time: 19:28
[2024-10-21 17:54] LABS: Basophils # (A) 0.09 10*3/uL (0.00-0.10); Basophils % (A) 1.3 %; Eosinophils # (A) 0.07 10*3/uL (0.04-0.35); HCT 45.7 % (37.2-46.3); HGB 15.5 g/dL (12.0-15.0); Lymphocytes # (A) 2.02 10*3/uL (0.90-5.00); Lymphocytes % (A) 28.8 %; MCH 32.6 pg (27.0-32.0); MCHC 33.9 g/dL (32.0-37.0); Mean Platelet Volume 12.3 fL (9.5-12.2); Monocytes # (A) 0.62 10*3/uL (0.20-1.00); Monocytes % (A) 8.8 %; Neutrophils # (A) 4.19 10*3/uL (1.80-7.70); Neutrophils % (A) 59.8 %; Platelet Count 215 10*3/uL (140-440); RBC 4.76 10*6/uL (4.10-5.20); RDW 13.4 % (11.5-14.5); WBC 7.01 10*3/uL (4.50-10.00)
[2024-10-21 18:03] LABS: INR 1.1 (<1.2); Partial Thromboplastin Time 24.8 sec (22.0-30.0); Prothrombin Time 11.9 sec (10.0-12.5)
[2024-10-21 18:04] LABS: ALT 87 U/L (4-34); AST 70 U/L (14-36); African American GFR (CKD) 83 (>60 ml/min/1.73 sqM); Albumin 4.6 g/dL (3.5-5.0); Alkaline Phosphatase 96 U/L (38-126); Anion Gap 14 mmol/L; Blood Urea Nitrogen 17 mg/dL (7-17); Calcium 9.8 mg/dL (8.4-10.2); Carbon Dioxide 19 mmol/L (22-30); Chloride 109 mmol/L (98-107); Glucose 107 mg/dL (74-99); Magnesium 2.1 mg/dL (1.6-2.3); Non-African American GFR(CKD) 72 (>60 ml/min/1.73 sqM); Sodium 142 mmol/L (137-145); Total Bilirubin 1.3 mg/dL (0.2-1.3); Total Protein 7.5 g/dL (6.3-8.2)
[2024-10-21] MEDS ORDERED: DILTIAZEM 125 MG in SODIUM CHLORIDE 0.9% 100 ML IV SCH (18:15)
--- NOTE | 2024-10-21 18:20 | XR ---
EXAMINATION TYPE: XR chest 2V DATE OF EXAM: 10/21/2024 6:14 PM COMPARISON: None. CLINICAL INDICATION: Female, 64 years old with history of dysrhythmia, TECHNIQUE: XR chest 2V view(s) obtained. FINDINGS: The heart size is normal. The pulmonary vasculature is normal. The lungs are clear. IMPRESSION: 1. No acute pulmonary process. [facility], , 10/21/2024 6:17 PM
[2024-10-21] MEDS: DILTIAZEM 5 MG/ML 5 ML VIAL IVP STA (18:21)
[2024-10-21] MEDS: DILTIAZEM DRIP BOLUS FROM BAG 1 MG SOLN IV ONE (18:50)
[2024-10-21] MEDS: DILTIAZEM 125 MG in SODIUM CHLORIDE 0.9% 100 ML IV SCH (19:01)
[2024-10-21] MEDS ORDERED: ACETAMINOPHEN TAB 325 MG TAB PO PRN (19:26)
[2024-10-21] MEDS ORDERED: NALOXONE 0.4 MG/ML 1 ML VIAL IV PRN (19:26)
[2024-10-21] MEDS ORDERED: ONDANSETRON 4 MG/2 ML VIAL IVP PRN (19:26)
[2024-10-21] MEDS: APIXABAN 5 MG TAB PO SCH (20:12)
[2024-10-22 06:08] LABS: Basophils # (A) 0.07 10*3/uL (0.00-0.10); Basophils % (A) 1.2 %; Eosinophils # (A) 0.08 10*3/uL (0.04-0.35); Eosinophils % (A) 1.4 %; HCT 41.3 % (37.2-46.3); HGB 13.5 g/dL (12.0-15.0); Lymphocytes # (A) 2.14 10*3/uL (0.90-5.00); Lymphocytes % (A) 37.8 %; MCH 31.8 pg (27.0-32.0); MCHC 32.7 g/dL (32.0-37.0); MCV 97.2 fL (80.0-97.0); Mean Platelet Volume 12.4 fL (9.5-12.2); Monocytes # (A) 0.52 10*3/uL (0.20-1.00); Monocytes % (A) 9.2 %; Neutrophils # (A) 2.84 10*3/uL (1.80-7.70); Neutrophils % (A) 50.2 %; Platelet Count 191 10*3/uL (140-440); RBC 4.25 10*6/uL (4.10-5.20); RDW 13.4 % (11.5-14.5); WBC 5.66 10*3/uL (4.50-10.00)
[2024-10-22 06:19] LABS: ALT 73 U/L (4-34); AST 49 U/L (14-36); African American GFR (CKD) 78 (>60 ml/min/1.73 sqM); Albumin 3.8 g/dL (3.5-5.0); Alkaline Phosphatase 80 U/L (38-126); Anion Gap 8 mmol/L; Blood Urea Nitrogen 14 mg/dL (7-17); Calcium 9.2 mg/dL (8.4-10.2); Carbon Dioxide 25 mmol/L (22-30); Chloride 107 mmol/L (98-107); Glucose 93 mg/dL (74-99); Non-African American GFR(CKD) 68 (>60 ml/min/1.73 sqM); Potassium 3.8 mmol/L (3.5-5.1); Sodium 140 mmol/L (137-145); Total Bilirubin 1.3 mg/dL (0.2-1.3); Total Protein 6.1 g/dL (6.3-8.2)
[2024-10-22] MEDS: METOPROLOL TARTRATE 25 MG TAB PO SCH (08:58)
--- NOTE | 2024-10-22 09:13 | P.HPIM ---
History of Present Illness H&P Date: 10/21/24 Chief Complaint: Irregular heartbeat/difficulty. 64-year-old female with a history of hyperlipidemia, atrial fibrillation on Eliquis presenting to the emergency department with complaints of difficulty breathing and abnormal heart rhythm. Patient states that over the past few days she states that she feels like her heart has been irregular rhythm similar as when she has had A-fib in the past. States that she feels mildly short of breath with activity of the past few days as well. She denies chest pain, difficulty in breathing at rest, headaches, visual disturbances. Patient states that she was on amiodarone for over a year ago however she was titrated off of this medication by her assembling motor builder. Blood work completed in ED reveals a WBC of 7.01, hemoglobin of 15.5 and platelet count of 215, sodium 142, potassium 4.0, BUN/creatinine 17/0.85 and blood glucose of 107, AST of 70, ALT of 87, BNP of 5060 with troponin of 0.015 EKG reveals atrial fibrillation with rapid ventricular response with a heart rate of 177 -Chest x-ray completed with no acute cardiopulmonary process Review of Systems REVIEW OF SYSTEMS: CONSTITUTIONAL: No fever, no malaise, no fatigue. HEENT: No recent visual problems or hearing problems. Denied any sore throat. CARDIOVASCULAR: No chest pain, orthopnea, PND, no palpitations, no syncope. PULMONARY: No shortness of breath, no cough, no hemoptysis. GASTROINTESTINAL: No diarrhea, no nausea, no vomiting, no abdominal pain. NEUROLOGICAL: No headaches, no weakness, no numbness. HEMATOLOGICAL: Denies any bleeding or petechiae. GENITOURINARY: Denies any burning micturition, frequency, or urgency. MUSCULOSKELETAL/RHEUMATOLOGICAL: Denies any joint pain, swelling, or any muscle pain. ENDOCRINE: Denies any polyuria or polydipsia. The rest of the 14-point review of systems is negative. Past Medical History Past Medical History: Atrial Fibrillation, Hyperlipidemia, Osteoarthritis (OA) History of Any Multi-Drug Resistant Organisms: None Reported Additional Past Surgical History / Comment(s): Colonoscopy Past Anesthesia/Blood Transfusion Reactions: No Reported Reaction Additional Past Anesthesia/Blood Transfusion Reaction / Comment(s): No hx of blood transfusion to date. Past Psychological History: No Psychological Hx Reported Smoking Status: Former smoker - Past Family History Father Family Medical History: No Reported History Medications and Allergies Home Medications Medication Instructions Recorded Confirmed Type Apixaban [Eliquis] 5 mg PO BID 11/09/23 10/21/24 History Allergies Allergy/AdvReac Type Severity Reaction Status Date / Time No Known Allergies Allergy Verified 10/21/24 18:29 Physical Exam Vitals: Vital Signs Temp Pulse Resp BP Pulse Ox 10/21/24 17:59 177 H 18 105/76 98 10/21/24 17:12 97.6 F 68 18 167/96 100 Intake and Output 10/21/24 10/21/24 10/21/24 06:59 14:59 22:59 Other: Weight 90.718 kg General appearance: alert, in no apparent distress ENT exam: Present: normal exam, mucous membranes moist Neck exam: Present: normal inspection. Absent: tenderness, meningismus, lymphadenopathy Respiratory exam: Present: normal lung sounds bilaterally. Absent: respiratory distress, wheezes, rales, rhonchi, stridor Cardiovascular Exam: Present: tachycardia, irregular rhythm, normal heart sounds. Absent: regular rate, normal rhythm, systolic murmur, diastolic murmur, rubs, gallop, clicks GI/Abdominal exam: Present: soft, normal bowel sounds. Absent: distended, tenderness, guarding, rebound, rigid Extremities exam: Present: normal inspection, full ROM, normal capillary refill. Absent: tenderness, pedal edema, joint swelling, calf tenderness Results CBC & Chem 7: 10/22/24 05:36 10/22/24 05:36 Labs: Abnormal Lab Results - Last 24 Hours (Table) 10/21/24 10/21/24 Range/Units 17:47 17:47 Hgb 15.5 H (12.0-15.0) g/dL MCH 32.6 H (27.0-32.0) pg MPV 12.3 H (9.5-12.2) fL Chloride 109 H (98-107) mmol/L Carbon Dioxide 19 L (22-30) mmol/L Glucose 107 H (74-99) mg/dL AST 70 H (14-36) U/L ALT 87 H (4-34) U/L Assessment and Plan Assessment: 1. Atrial fibrillation with RVR -- Patient does report history of atrial fibrillation controlled with amiodarone which was titrated off about a year ago; patient remains on Eliquis -- Patient is placed on IV Cardizem infusion with plans to titrate keeping heart rate less than 110 - Recommend 2D echo - Consult cardiology 2. Elevated BNP; BNP is elevated at 5060 - Checks x-ray is negative for any acute pulmonary process; patient does not show any signs of fluid overload 3. Obesity; patient educated on need for weight reduction 4. Transaminitis; AST/ALT slightly elevated at 70/87; etiology unclear; will monitor liver enzymes and order acute hepatitis profile DVT prophylaxis SCD/Eliquis; CODE STATUS; full code
--- NOTE | 2024-10-22 10:22 | P.CRDCN ---
History of Present Illness History of present illness: HISTORY OF PRESENT ILLNESS: This is a 64-year-old female with a past medical history significant for paroxysmal atrial fibrillation, moderate to severe MR, and obesity. Patient follows in the office with Dr. Peña. We have been asked to see the patient in consultation for A-fib with RVR. Patient examined at the bedside. Patient reports she has been feeling short of breath for the past few days. She denies having any significant palpitations. She presented to the hospital for further evaluation. Patient was found to be in A-fib with RVR. She was started on IV Cardizem. She remains in atrial fibrillation this morning with a heart rate in the 130s. IV Cardizem is infusing at 5 mg an hour. Patient is not prescribed any beta-blockers on an outpatient basis. DIAGNOSTICS: - EKG reveals A-fib with RVR. - Chest xray negative for acute process. - Laboratory data: WBC 5.66. Hemoglobin 13.5. Platelet count 191. Sodium 140. Potassium 3.8. BUN 14. Creatinine 0.89. Troponin 0.015. 0.013. 0.016. proBNP 5060. - Current home cardiac medications include Eliquis 5 mg twice a day. - Most recent echocardiogram obtained in the office revealed ejection fraction 55%, moderate to severe MR, moderate TR - Cardiac catheterization history: November 2023 revealing relatively normal coronary arteries other than mild luminary irregularities of the RCA. Normal left-sided filling pressures. REVIEW OF SYSTEMS: At the time of my exam: CONSTITUTIONAL: Denies fever or chills. HEENT: Denies blurred vision, vision changes, or eye pain. Denies hemoptysis CARDIOVASCULAR: Denies chest pain. Denies orthopnea. Denies PND. Denies palpitations RESPIRATORY: Denies shortness of breath. GASTROINTESTINAL: Denies abdominal pain. Denies nausea or vomiting. HEMATOLOGIC: Denies bleeding disorders. GENITOURINARY: Denies any blood in urine. SKIN: Denies pruitis. Denies rash. PHYSICAL EXAM: VITAL SIGNS: Reviewed. GENERAL: Well-developed in no acute distress. HEENT: Head is normocephalic. Pupils are equal, round. Sclerae anicteric. Mucous membranes of the mouth are moist. Neck supple. No JVD or thyromegaly LUNGS: Respirations even and unlabored. Lungs essentially clear to auscultation bilaterally. HEART: Tachycardic. Irregular rate and rhythm. S1 and S2 heard. + systolic murmur ABDOMEN: Soft. Nondistended. Nontender. EXTREMITIES: Normal range of motion. No clubbing or cyanosis. Peripheral pulses intact. No lower extremity edema NEUROLOGIC: Awake and alert. Oriented x 3. ASSESSMENT: Shortness of breath Paroxysmal atrial fibrillation with RVR Normal coronary arteries, per cath 11/2023 Obesity: BMI 33.0 Moderate to severe MR PLAN: Obtain 2D echo to assess cardiac structure and function Continue anticoagulation with Eliquis Continue IV Cardizem Add metoprolol tartrate 25 mg twice a day Consider VIC/Cardioversion tomorrow she remains in A-fib with RVR Further recommendations pending patient course Nurse practitioner note has been reviewed by physician. Signing provider agrees with the documented findings, assessment, and plan of care documented by MARINATOR as a scribe. Past Medical History Past Medical History: Atrial Fibrillation, Hyperlipidemia, Osteoarthritis (OA) History of Any Multi-Drug Resistant Organisms: None Reported Additional Past Surgical History / Comment(s): Colonoscopy Past Anesthesia/Blood Transfusion Reactions: No Reported Reaction Additional Past Anesthesia/Blood Transfusion Reaction / Comment(s): No hx of blood transfusion to date. Past Psychological History: No Psychological Hx Reported Smoking Status: Former smoker Past Alcohol Use History: Occasional Additional Past Alcohol Use History / Comment(s): Smoked for 10 years- 30 yEARS AGO, 1PPD. Drinks once a week < 7 drinks Past Drug Use History: None Reported - Past Family History Father Family Medical History: No Reported History Medications and Allergies Home Medications Medication Instructions Recorded Confirmed Type Apixaban [Eliquis] 5 mg PO BID 11/09/23 10/21/24 History Allergies Allergy/AdvReac Type Severity Reaction Status Date / Time No Known Allergies Allergy Verified 10/21/24 18:29 Physical Exam Vitals: Vital Signs Temp Pulse Pulse Resp BP BP Pulse Ox 10/22/24 04:00 89 16 133/95 95 10/21/24 23:20 98.3 F 114 H 20 134/97 98 10/21/24 22:20 97.9 F 114 H 18 136/90 99 10/21/24 20:16 141 H 18 111/87 99 10/21/24 17:59 177 H 18 105/76 98 10/21/24 17:12 97.6 F 68 18 167/96 100 Intake and Output 10/21/24 10/22/24 10/22/24 22:59 06:59 14:59 Intake Total 540 Balance 540 Intake: Oral 540 Other: Voiding Method Toilet Weight 90.718 kg 98.5 kg Results 10/22/24 05:36 10/22/24 05:36 Cardiac Enzymes 10/21/24 10/21/24 10/21/24 Range/Units 17:47 17:47 21:16 AST 70 H (14-36) U/L Troponin I 0.015 0.013 (0.000-0.034) ng/mL 10/21/24 10/22/24 Range/Units 23:58 05:36 AST 49 H (14-36) U/L Troponin I 0.016 (0.000-0.034) ng/mL Coagulation 10/21/24 Range/Units 17:47 PT 11.9 (10.0-12.5) sec APTT 24.8 (22.0-30.0) sec CBC 10/21/24 10/22/24 Range/Units 17:47 05:36 WBC 7.01 5.66 (4.50-10.00) 10*3/uL RBC 4.76 4.25 (4.10-5.20) 10*6/uL Hgb 15.5 H 13.5 (12.0-15.0) g/dL Hct 45.7 41.3 (37.2-46.3) % Plt Count 215 191 (140-440) 10*3/uL Comprehensive Metabolic Panel 10/21/24 10/22/24 Range/Units 17:47 05:36 Sodium 142 140 (137-145) mmol/L Potassium 4.0 3.8 (3.5-5.1) mmol/L Chloride 109 H 107 (98-107) mmol/L Carbon Dioxide 19 L 25 (22-30) mmol/L BUN 17 14 (7-17) mg/dL Creatinine 0.85 0.89 (0.52-1.04) mg/dL Glucose 107 H 93 (74-99) mg/dL Calcium 9.8 9.2 (8.4-10.2) mg/dL AST 70 H 49 H (14-36) U/L ALT 87 H 73 H (4-34) U/L Alkaline Phosphatase 96 80 (38-126) U/L Total Protein 7.5 6.1 L (6.3-8.2) g/dL Albumin 4.6 3.8 (3.5-5.0) g/dL Current Medications Generic Name Dose Route Start Last Admin Trade Name Freq PRN Reason Stop Dose Admin Acetaminophen 650 mg 10/21/24 19:26 Acetaminophen Tab 325 Mg Tab PO Q6HR PRN Mild Pain or Fever > 100.5 Apixaban 5 mg 10/21/24 21:00 10/21/24 20:12 Apixaban 5 Mg Tab PO 5 mg BID ADRIAN Administration Protocol Diltiazem HCl 125 mg/ Sodium 125 mls @ 5 mls/hr 10/21/24 19:00 10/21/24 19:01 Chloride IV 5 mg/hr .Q24H ADRIAN 5 mls/hr Administration 5 MG/HR Naloxone HCl 0.2 mg 10/21/24 19:26 Naloxone 0.4 Mg/Ml 1 Ml Vial IV Q2M PRN Opioid Reversal Ondansetron HCl 4 mg 10/21/24 19:26 Ondansetron 4 Mg/2 Ml Vial IVP Q8HR PRN Nausea And Vomiting Intake and Output 10/21/24 10/22/24 10/22/24 22:59 06:59 14:59 Intake Total 540 Balance 540 Intake: Oral 540 Other: Voiding Method Toilet Weight 90.718 kg 98.5 kg 10/22/24 05:36 10/22/24 05:36
[2024-10-22 13:40] LABS: Hepatitis A Antibody IgM Nonreactive (Nonreactive); Hepatitis B Core IgM Nonreactive (Nonreactive); Hepatitis B Surface Antigen Nonreactive (Nonreactive); Hepatitis C IgG Antibody Nonreactive (Nonreactive)
--- NOTE | 2024-10-22 14:43 | P.PN ---
Subjective Progress Note Date: 10/22/24 64-year-old female with a history of hyperlipidemia, atrial fibrillation on Eliquis presenting to the emergency department with complaints of difficulty breathing and abnormal heart rhythm. Patient states that over the past few days she states that she feels like her heart has been irregular rhythm similar as when she has had A-fib in the past. States that she feels mildly short of breath with activity of the past few days as well. She denies chest pain, difficulty in breathing at rest, headaches, visual disturbances. Patient states that she was on amiodarone for over a year ago however she was titrated off of this medication by her quoter. Blood work completed in ED reveals a WBC of 7.01, hemoglobin of 15.5 and platelet count of 215, sodium 142, potassium 4.0, BUN/creatinine 17/0.85 and blood glucose of 107, AST of 70, ALT of 87, BNP of 5060 with troponin of 0.015 EKG reveals atrial fibrillation with rapid ventricular response with a heart rate of 177 -Chest x-ray completed with no acute cardiopulmonary process -- Patient has been evaluated by cardiology Obtain 2D echo to assess cardiac structure and function Continue anticoagulation with Eliquis Continue IV Cardizem Add metoprolol tartrate 25 mg twice a day Consider VIC/Cardioversion tomorrow she remains in A-fib with RVR Objective - Vital Signs Vital signs: Vital Signs Temp 98.3 F 10/21/24 23:20 Pulse 89 10/22/24 04:00 Resp 16 10/22/24 04:00 BP 133/95 10/22/24 04:00 Pulse Ox 95 10/22/24 04:00 FiO2 Intake & Output 10/21/24 10/22/24 10/22/24 18:59 06:59 18:59 Intake Total 540 Balance 540 Weight 90.718 kg 98.5 kg Intake: Oral 540 Other: Voiding Method Toilet - Exam General appearance: alert, in no apparent distress ENT exam: Present: normal exam, mucous membranes moist Neck exam: Present: normal inspection. Absent: tenderness, meningismus, lymphadenopathy Respiratory exam: Present: normal lung sounds bilaterally. Absent: respiratory distress, wheezes, rales, rhonchi, stridor Cardiovascular Exam: Present: tachycardia, irregular rhythm, normal heart sounds. Absent: regular rate, normal rhythm, systolic murmur, diastolic murmur, rubs, gallop, clicks GI/Abdominal exam: Present: soft, normal bowel sounds. Absent: distended, tenderness, guarding, rebound, rigid Extremities exam: Present: normal inspection, full ROM, normal capillary refill. Absent: tenderness, pedal edema, joint swelling, calf tenderness - Labs CBC & Chem 7: 10/22/24 05:36 10/22/24 05:36 Labs: Abnormal Lab Results - Last 24 Hours (Table) 10/21/24 10/21/24 10/22/24 Range/Units 17:47 17:47 05:36 Hgb 15.5 H (12.0-15.0) g/dL MCV 97.2 H (80.0-97.0) fL MCH 32.6 H (27.0-32.0) pg MPV 12.3 H 12.4 H (9.5-12.2) fL Chloride 109 H (98-107) mmol/L Carbon Dioxide 19 L (22-30) mmol/L Glucose 107 H (74-99) mg/dL AST 70 H (14-36) U/L ALT 87 H (4-34) U/L Total Protein (6.3-8.2) g/dL 10/22/24 Range/Units 05:36 Hgb (12.0-15.0) g/dL MCV (80.0-97.0) fL MCH (27.0-32.0) pg MPV (9.5-12.2) fL Chloride (98-107) mmol/L Carbon Dioxide (22-30) mmol/L Glucose (74-99) mg/dL AST 49 H (14-36) U/L ALT 73 H (4-34) U/L Total Protein 6.1 L (6.3-8.2) g/dL Assessment and Plan Assessment: 1. Atrial fibrillation with RVR -- Patient does report history of atrial fibrillation controlled with amiodarone which was titrated off about a year ago; patient remains on Eliquis -- Patient is placed on IV Cardizem infusion with plans to titrate keeping heart rate less than 110 - Recommend 2D echo - Consult cardiology 2. Elevated BNP; BNP is elevated at 5060 - Checks x-ray is negative for any acute pulmonary process; patient does not show any signs of fluid overload 3. Obesity; patient educated on need for weight reduction 4. Transaminitis; AST/ALT slightly elevated at 70/87; etiology unclear; will monitor liver enzymes and order acute hepatitis profile DVT prophylaxis SCD/Eliquis; CODE STATUS; full code
[2024-10-23] MEDS ORDERED: fentaNYL (PF) 50 MCG/ML 5 ML AMP IVP PRN (08:21)
[2024-10-23] MEDS ORDERED: MIDAZOLAM 2 MG/2 ML VIAL IV PRN (08:21)
--- NOTE | 2024-10-23 09:07 | P.PN ---
Subjective HISTORY OF PRESENT ILLNESS: This is a 64-year-old female with a past medical history significant for paroxysmal atrial fibrillation, moderate to severe MR, and obesity. Patient follows in the office with Dr. Peña. We have been asked to see the patient in consultation for A-fib with RVR. Patient examined at the bedside. Patient reports she has been feeling short of breath for the past few days. She denies having any significant palpitations. She presented to the hospital for further evaluation. Patient was found to be in A-fib with RVR. She was started on IV Cardizem. She remains in atrial fibrillation this morning with a heart rate in the 130s. IV Cardizem is infusing at 5 mg an hour. Patient is not prescribed any beta-blockers on an outpatient basis. DIAGNOSTICS: - EKG reveals A-fib with RVR. - Chest xray negative for acute process. - Laboratory data: WBC 5.66. Hemoglobin 13.5. Platelet count 191. Sodium 140. Potassium 3.8. BUN 14. Creatinine 0.89. Troponin 0.015. 0.013. 0.016. proBNP 5060. - Current home cardiac medications include Eliquis 5 mg twice a day. - Most recent echocardiogram obtained in the office revealed ejection fraction 55%, moderate to severe MR, moderate TR - Cardiac catheterization history: November 2023 revealing relatively normal coronary arteries other than mild luminary irregularities of the RCA. Normal left-sided filling pressures. 10/23/2024 Patient examined this morning at the bedside. She is sitting up in the chair. Patient currently denies chest pain or pressure. She reports mild shortness of breath with exertion. She remains in atrial fibrillation with RVR. She is currently on IV Cardizem at 5 mg an hour. PHYSICAL EXAM: VITAL SIGNS: Reviewed. GENERAL: Well-developed in no acute distress. HEENT: Head is normocephalic. Pupils are equal, round. Sclerae anicteric. Mucous membranes of the mouth are moist. Neck supple. No JVD or thyromegaly LUNGS: Respirations even and unlabored. Lungs essentially clear to auscultation bilaterally. HEART: Tachycardic. Irregular rate and rhythm. S1 and S2 heard. + systolic murmur ABDOMEN: Soft. Nondistended. Nontender. EXTREMITIES: Normal range of motion. No clubbing or cyanosis. Peripheral pulses intact. No lower extremity edema NEUROLOGIC: Awake and alert. Oriented x 3. ASSESSMENT: Shortness of breath Paroxysmal atrial fibrillation with RVR Normal coronary arteries, per cath 11/2023 Obesity: BMI 33.0 Moderate to severe MR PLAN: 2D echo ordered. Await results. Continue anticoagulation with Eliquis Continue IV Cardizem Continue metoprolol tartrate 25 mg twice a day Patient to undergo VIC and cardioversion today with Dr. Peña Further recommendations pending patient course Nurse practitioner note has been reviewed by physician. Signing provider agrees with the documented findings, assessment, and plan of care documented by HOSPICE ADMINISTRATOR as a scribe. Objective - Vital Signs Vital signs: Vital Signs Temp 98 F 10/23/24 04:00 Pulse 120 H 10/23/24 04:53 Resp 16 10/23/24 04:00 BP 114/81 10/23/24 04:00 Pulse Ox 96 10/23/24 04:00 FiO2 Intake & Output 10/22/24 10/23/24 10/23/24 18:59 06:59 18:59 Intake Total 216.917 300 88.583 Balance 216.917 300 88.583 Weight 97.9 kg Intake: Intake, IV Titration 96.917 88.583 Amount Diltiazem 125 mg In 96.917 88.583 Sodium Chloride 0.9% 100 ml @ 5 MG/HR 5 mls/hr IV .Q24H [facility] Rx#:[id number] Oral 120 300 Other: Voiding Method Toilet Toilet # Voids 1 1 - Labs CBC & Chem 7: 10/22/24 05:36 10/22/24 05:36
[2024-10-23] MEDS: SODIUM CHLORIDE 0.9% 500 ML 500 ML IV ONE (10:02)
[2024-10-23] MEDS: BENZOCAINE SPRAY 1 EACH MUCOUS MEM STA (10:04)
[2024-10-23] MEDS ORDERED: LIDOCAINE 1% INJ 10MG/ML (20 ML MDV) ONE (10:05)
[2024-10-23] MEDS ORDERED: PROPOFOL 10 MG/ML 20 ML VIAL IV ONE (10:05)
--- NOTE | 2024-10-23 14:18 | CA ---
Transthoracic Echo Report Name: Janice Ang Age: 64 Gender: F : 1960 Exam Date: 10/23/2024 10:00 Exam Location: [facility] Ht (in): 68 Wt (lb): 215 Ordering Physician: Yaritza Mancuso Attending/Referring Phys: [id number], Jamee Package Winder Beronica Webber, LESTER Procedure CPT: Indications: LV function, afib rvr, Cardiomyopathy, unspecified Cardiac Hx: Technical Quality: Fair Contrast 1: Total Dose (mL): Contrast 2: Total Dose (mL): MEASUREMENTS (Male / Female) Normal Values 2D ECHO LV Diastolic Diameter PLAX 4.8 cm 4.2 - 5.9 / 3.9 - 5.3 cm LV Systolic Diameter PLAX 4.3 cm IVS Diastolic Thickness 1.0 cm 0.6 - 1.0 / 0.6 - 0.9 cm LVPW Diastolic Thickness 1.0 cm 0.6 - 1.0 / 0.6 - 0.9 cm LV Relative Wall Thickness 0.4 RV Internal Dim ED PLAX 2.8 cm LA Systolic Diameter LX 4.1 cm 3.0 - 4.0 / 2.7 - 3.8 cm LV Diastolic Volume MOD BP 47.4 cm??? 67 - 155 / 56 - 104 cm??? LV Systolic Volume MOD BP 44.6 cm??? 22 - 58 / 19 - 49 cm??? LV Ejection Fraction MOD BP 5.9 % >= 55 % LV Cardiac Index MOD BP 170.5 cm???/min???m??? LV Diastolic Volume MOD 4C 40.5 cm??? LV Systolic Volume MOD 4C 36.4 cm??? LV Ejection Fraction MOD 4C 10.1 % LV Cardiac Index MOD 4C 247.6 cm???/min???m??? LV Diastolic Length 4C 6.2 cm LV Systolic Length 4C 6.1 cm LV Diastolic Volume MOD 2C 54.8 cm??? LV Systolic Volume MOD 2C 51.3 cm??? LV Ejection Fraction MOD 2C 6.5 % LV Cardiac Index MOD 2C 216.9 cm???/min???m??? LV Diastolic Length 2C 6.1 cm LV Systolic Length 2C 5.6 cm LA Volume 53.9 cm??? 18 - 58 / 22 - 52 cm??? LA Volume Index 24.5 cm???/m??? 16 - 28 cm???/m??? M-MODE Aortic Root Diameter MM 3.0 cm LA Systolic Diameter MM 3.9 cm LA Ao Ratio MM 1.3 AV Cusp Separation MM 1.9 cm DOPPLER TR Peak Velocity 265.8 cm/s TR Peak Gradient 28.3 mmHg Right Atrial Pressure 10.0 mmHg Pulmonary Artery Systolic Pressu 38.3 mmHg Right Ventricular Systolic Press 38.3 mmHg FINDINGS Left Ventricle Left ventricular ejection fraction is estimated at 20-25%. Mildly increased septal wall thickness. Severely decreased left ventricular ejection fraction. Severely reduced global left ventricular systolic function. Right Ventricle Mild right ventricular dilatation. Mild pulmonary hypertension. Right Atrium Severe right atrial dilatation. Left Atrium Severe left atrial dilatation. Mildly increased left atrial diameter. Mildly increased left atrial volume. Mitral Valve Structurally normal mitral valve. [id number] mitral regurgitation. No mitral stenosis. Aortic Valve Trileaflet aortic valve. No aortic valve stenosis or regurgitation. Tricuspid Valve Structurally normal tricuspid valve. Moderate tricuspid regurgitation. No tricuspid stenosis. Pulmonic Valve Structurally normal pulmonic valve. No pulmonic stenosis. Trace pulmonic regurgitation. Pericardium No pericardial or pleural effusion. Aorta Normal size aortic root and proximal ascending aorta. CONCLUSIONS LVEF 20 to 25%. LVEF is underestimated because of atrial fibrillation with RVR Severely reduced global LV systolic dysfunction Severe biatrial dilatation Mild RV dilatation with RVSP estimated at 38 mmHg Moderate to severe MR Moderate TR Previewed by: Dr London Estevez (Electronically Signed) Final Date: 23 October 2024 14:17
--- NOTE | 2024-10-23 14:23 | P.TEE ---
Description of Procedure(s): Procedure performed: Transesophageal Echocardiogram with color flow doppler, pulsed wave doppler and continuous wave doppler, synchronized cardioversion Moderate conscious sedation: Moderate conscious sedation was supplied by anesthesia, see separate report. Complications: none Indications: Atrial fibrillation PROCEDURE: After the risks, benefits and alternatives of the above mentioned procedure was explained in detail with the patient, informed consent was obtained. Patient was brought to the lab in a fasting state. Patient was given sedation by anesthesia, see separate report. The throat was sprayed with Hurricane to anesthetize the throat. A lubricated Omni probe was then introduced into the esophagus and stomach and multiple views were obtained. 2D echo with color flow doppler, pulsed wave doppler and continuous wave doppler was utilized. Agitated saline bubbles were injected to assess for any intra-atrial shunt. The probe was then removed. There was no thrombus noted and therefore patient underwent synchronized cardioversion x 1 with 200J with resultant sinus rhythm. Patient tolerated the procedure well. Patient was transferred to the post procedure area in stable and satisfactory condition. FINDINGS: 1. The aortic valve is tricuspid with normal function with mild aortic regurgitation. 2. The mitral valve appears be normal with mild to moderate mitral regurgitation. 3. Tricuspid valve appears to be normal with mild to moderate tricuspid regurgitation 4. The interatrial septum is intact. No evidence of PFO. 5. Left atrial appendage is free of clot. 6. Left ventricular ejection fraction 50 to 55%
[2024-10-23 16:23] LABS: Glucose,Whole Blood 104 mg/dL (70-110)
--- NOTE | 2024-10-23 21:44 | P.PN ---
Subjective Progress Note Date: 10/23/24 64-year-old female with a history of hyperlipidemia, atrial fibrillation on Eliquis presenting to the emergency department with complaints of difficulty breathing and abnormal heart rhythm. Patient states that over the past few days she states that she feels like her heart has been irregular rhythm similar as when she has had A-fib in the past. States that she feels mildly short of breath with activity of the past few days as well. She denies chest pain, difficulty in breathing at rest, headaches, visual disturbances. Patient states that she was on amiodarone for over a year ago however she was titrated off of this medication by her adjunct professor of voice. Blood work completed in ED reveals a WBC of 7.01, hemoglobin of 15.5 and platelet count of 215, sodium 142, potassium 4.0, BUN/creatinine 17/0.85 and blood glucose of 107, AST of 70, ALT of 87, BNP of 5060 with troponin of 0.015 EKG reveals atrial fibrillation with rapid ventricular response with a heart rate of 177 -Chest x-ray completed with no acute cardiopulmonary process 10/24/2023 Patient is lying in the bed. Awake alert and orient x 3. No complaints of chest pain or shortness of breath. No leg swelling. No cough or sputum production. Patient underwent cardioversion today. Continued on metoprolol 25 mg twice daily. On anticoagulation with Eliquis heart rate is controlled and maintaining sinus rhythm. Continue to monitor overnight. Laboratory data reviewed. Current medications reviewed. Objective - Vital Signs Vital signs: Vital Signs Temp 97.6 F 10/23/24 20:00 Pulse 74 10/23/24 20:00 Resp 18 10/23/24 20:00 BP 135/84 10/23/24 20:00 Pulse Ox 97 10/23/24 20:00 FiO2 Intake & Output 10/23/24 10/23/24 10/24/24 06:59 18:59 06:59 Intake Total 300 387.166 Balance 300 387.166 Weight 97.9 kg Intake: IV 100 Intake, IV Titration 107.166 Amount Diltiazem 125 mg In 107.166 Sodium Chloride 0.9% 100 ml @ 5 MG/HR 5 mls/hr IV .Q24H [facility] Rx#:[id number] Oral 300 180 Other: Voiding Method Toilet Toilet Toilet # Voids 1 1 - Exam PHYSICAL EXAMINATION: Patient is lying in the bed comfortably, no acute distress, awake alert and oriented.. HEENT: Normocephalic. Neck is supple. Pupils reactive. Nostrils clear. Oral cavity is moist. Neck reveals no JVD, carotid bruits, or thyromegaly. CHEST EXAMINATION: Trachea is central. Symmetrical expansion. Lung silva clear to auscultation and percussion. CARDIAC: Normal S1, S2 with no gallops. No murmurs ABDOMEN: Soft. Bowel sounds normal. No organomegaly. No abdominal bruits. Extremities: reveal no edema. No clubbing or cyanosis Neurologically awake, alert, oriented x3 with well-coordinated movements. No focal deficits noted Skin: No rash or skin lesions. Psychiatric: Coperative. Nonsuicidal Musculoskeletal: No joint swelling or deformity. Normal range of motion. - Labs CBC & Chem 7: 10/22/24 05:36 10/22/24 05:36 Assessment and Plan Assessment: 1. Atrial fibrillation with RVR -- Patient does report history of atrial fibrillation controlled with amiodarone which was titrated off about a year ago; patient remains on Eliquis -- Patient was placed on IV Cardizem infusion with plans to titrate keeping heart rate less than 110. Currently Cardizem drip is off. - 2D echocardiogram was done. - Cardiology is on board. Patient underwent VIC/cardioversion today and converted to sinus rhythm. 2. Elevated BNP; BNP is elevated at 5060 without any signs of heart failure. - Checks x-ray is negative for any acute pulmonary process; patient does not show any signs of fluid overload 3. Obesity; patient educated on need for weight reduction 4. Transaminitis; AST/ALT slightly elevated at 70/87; etiology unclear; will monitor liver enzymes and order acute hepatitis profile DVT prophylaxis SCD/Eliquis; CODE STATUS; full code Time with Patient: Greater than 30
[2024-10-24 07:44] LABS: ALT 73 U/L (4-34); AST 42 U/L (14-36); African American GFR (CKD) 70 (>60 ml/min/1.73 sqM); Albumin 3.8 g/dL (3.5-5.0); Alkaline Phosphatase 86 U/L (38-126); Anion Gap 7 mmol/L; Blood Urea Nitrogen 18 mg/dL (7-17); Calcium 9.1 mg/dL (8.4-10.2); Carbon Dioxide 26 mmol/L (22-30); Chloride 107 mmol/L (98-107); Glucose 101 mg/dL (74-99); Non-African American GFR(CKD) 60 (>60 ml/min/1.73 sqM); Potassium 4.1 mmol/L (3.5-5.1); Sodium 140 mmol/L (137-145); Total Bilirubin 1.4 mg/dL (0.2-1.3); Total Protein 6.2 g/dL (6.3-8.2)
[2024-10-24 08:17] VITALS: TEMP 97.7
[2024-10-24 11:40] VITALS: BP 135/86; PULSE 58; RESP 16
--- NOTE | 2024-10-24 13:10 | P.PN ---
Subjective HISTORY OF PRESENT ILLNESS: This is a 64-year-old female with a past medical history significant for paroxysmal atrial fibrillation, moderate to severe MR, and obesity. Patient follows in the office with Dr. Peña. We have been asked to see the patient in consultation for A-fib with RVR. Patient examined at the bedside. Patient reports she has been feeling short of breath for the past few days. She denies having any significant palpitations. She presented to the hospital for further evaluation. Patient was found to be in A-fib with RVR. She was started on IV Cardizem. She remains in atrial fibrillation this morning with a heart rate in the 130s. IV Cardizem is infusing at 5 mg an hour. Patient is not prescribed any beta-blockers on an outpatient basis. DIAGNOSTICS: - EKG reveals A-fib with RVR. - Chest xray negative for acute process. - Laboratory data: WBC 5.66. Hemoglobin 13.5. Platelet count 191. Sodium 140. Potassium 3.8. BUN 14. Creatinine 0.89. Troponin 0.015. 0.013. 0.016. proBNP 5060. - Current home cardiac medications include Eliquis 5 mg twice a day. - Most recent echocardiogram obtained in the office revealed ejection fraction 55%, moderate to severe MR, moderate TR - Cardiac catheterization history: November 2023 revealing relatively normal coronary arteries other than mild luminary irregularities of the RCA. Normal left-sided filling pressures. 10/23/2024 Patient examined this morning at the bedside. She is sitting up in the chair. Patient currently denies chest pain or pressure. She reports mild shortness of breath with exertion. She remains in atrial fibrillation with RVR. She is currently on IV Cardizem at 5 mg an hour. 10/24/2024 Patient is status post VIC and cardioversion yesterday. She is maintaining sinus mechanism this morning. Patient denies chest pain or pressure. She denies shortness of breath. Vital signs are stable. Echocardiogram completed revealing ejection fraction 20 to 25%. However VIC yesterday revealed ejection fraction 50 to 55% PHYSICAL EXAM: VITAL SIGNS: Reviewed. GENERAL: Well-developed in no acute distress. HEENT: Head is normocephalic. Pupils are equal, round. Sclerae anicteric. Mucous membranes of the mouth are moist. Neck supple. No JVD or thyromegaly LUNGS: Respirations even and unlabored. Lungs essentially clear to auscultation bilaterally. HEART: Regular rate and rhythm. S1 and S2 heard. + systolic murmur ABDOMEN: Soft. Nondistended. Nontender. EXTREMITIES: Normal range of motion. No clubbing or cyanosis. Peripheral pulse s intact. No lower extremity edema NEUROLOGIC: Awake and alert. Oriented x 3. ASSESSMENT: Shortness of breath Paroxysmal atrial fibrillation with RVR, status post VIC and cardioversion Normal coronary arteries, per cath 11/2023 Cardiomyopathy, ruled out, Echo revealed 20 to 25%, however VIC revealed ejection fraction 50 to 55% Obesity: BMI 33.0 Moderate to severe MR PLAN: Continue anticoagulation with Eliquis Discharge patient home with metoprolol 25 mg twice a day. Patient instructed that she may take this on a as-needed basis only per Dr. Peña. Will consider eventual A-fib ablation Patient to follow-up postdischarge with Dr. Peña Nurse practitioner note has been reviewed by physician. Signing provider agrees with the documented findings, assessment, and plan of care documented by SHELL MAKER LOCKSTITCH as a scribe. Objective - Vital Signs Vital signs: Vital Signs Temp 97.7 F 10/24/24 08:00 Pulse 58 L 10/24/24 11:38 Resp 16 10/24/24 11:38 BP 135/86 10/24/24 11:38 Pulse Ox 99 10/24/24 11:38 FiO2 Intake & Output 10/23/24 10/24/24 10/24/24 18:59 06:59 18:59 Intake Total 387.166 300 358 Balance 387.166 300 358 Weight 98.9 kg Intake: IV 100 Intake, IV Titration 107.166 Amount Diltiazem 125 mg In 107.166 Sodium Chloride 0.9% 100 ml @ 5 MG/HR 5 mls/hr IV .Q24H [facility] Rx#:[id number] Oral 180 300 358 Other: Voiding Method Toilet Toilet Toilet # Voids 1 2 1 - Labs CBC & Chem 7: 10/22/24 05:36 10/24/24 07:03 Labs: Abnormal Lab Results - Last 24 Hours (Table) 10/24/24 Range/Units 07:03 BUN 18 H (7-17) mg/dL Glucose 101 H (74-99) mg/dL Total Bilirubin 1.4 H (0.2-1.3) mg/dL AST 42 H (14-36) U/L ALT 73 H (4-34) U/L Total Protein 6.2 L (6.3-8.2) g/dL
== END 2024-10-24 14:08 | disposition home or self-care (01) | DRG 310 ==
LOC: EC 17:09 → 6NMEDSUR 19:52 → 3SCARD 20:10
PROVIDERS: ADMIT Internal Medicine; ATTEND Internal Medicine
PROC: 5A2204Z Restoration of Cardiac Rhythm, Single (ICD-10-PCS; principal; 2024-10-23 08:40)
PROC: B246ZZ4 Ultrasonography of Right and Left Heart, Transesophageal (ICD-10-PCS; principal; 2024-10-23 08:40)
DX: I48.0 Paroxysmal atrial fibrillation (principal); E66.9 Obesity, unspecified; I08.1 Rheumatic disorders of both mitral and tricuspid valves; Z68.33 Body mass index [BMI] 33.0-33.9, adult; E78.5 Hyperlipidemia, unspecified; R74.01 Elevation of levels of liver transaminase levels; Z87.891 Personal history of nicotine dependence; Z79.01 Long term (current) use of anticoagulants; M19.90 Unspecified osteoarthritis, unspecified site; Z79.899 Other long term (current) drug therapy
CPT/HCPCS: 36415; 71046; 80053; 80074; 83735; 83880; 84443; 84484; 85025; 85610; 85730; 92960; 93005; 93306; 93312; 93320; 93325; 94760; 96365; 96366; 99291